=== PATIENT | female | born 1960 | race Caucasian/White ===

== ENCOUNTER 2021-01-05 19:47 | Emergency (ER) | payer MEDICAID ==
[~2021-01-05] VITALS: Ht 142.2 cm; Wt 75.0 kg
--- NOTE | 2021-01-05 20:22 | NUR ---
PT C/O OF PETITE SEIZURES TO DAY. STATING HER LEFT HAND AND LEFT LEG KEEP SHAKING. PT ASSISTED INTO GOWN AND CONNECTED TO MONITORING. SEIZURE PRECAUTIONS IN PLACE. CALL LIGHT IN REACH. ERPA AT BEDSIDE FOR ASSESSMENT.
[2021-01-05] MEDS ORDERED: LORazepam 2 MG/ML, 1ML IVPush ONE (20:30)
[2021-01-05] MEDS ORDERED: LORazepam 1MG TABLET PO ONE (20:30)
[2021-01-05] MEDS ORDERED: LORazepam 1MG TABLET ONE (20:32)
--- NOTE | 2021-01-05 20:35 | NUR ---
MANAGER DIABETES PER MAR.
[2021-01-05 20:46] LABS: BASOPHILS % (AUTO) 1 % (0-1); EOSINOPHILS % (AUTO) 3 % (1-7); LYMPHOCYTES % (AUTO) 21 % (22-44); MEAN CORPUSCULAR HEMOGLOBIN 29.9 pg (27.0-34.8); MEAN CORPUSCULAR HGB CONC 33.9 g/dL (32.4-35.8); MEAN PLATELET VOLUME 6.1 fL (7.4-10.4); MONOCYTES % (AUTO) 7 % (2-9); NEUTROPHILS % (AUTO) 69 % (42-75); PLATELET COUNT 335 x10^3/uL (130-400); RED BLOOD COUNT 5.11 x10^6/uL (3.82-5.3)
[2021-01-05 20:47] LABS: ANION GAP 5 mmol/L (5-15); CHLORIDE 108 mmol/L (98-107); CREATININE 0.82 mg/dL (0.55-1.02)
--- NOTE | 2021-01-05 20:47 | NUR ---
PT STATES SHE IS UNABLE TO PROVIDE URINE AT THIS TIME. ERPA UPDATED, NO NEW ORDERS AT THIS TIME.
[2021-01-05 21:22] LABS: MD SCAN
--- NOTE | 2021-01-05 21:35 | NUR ---
THIS RN HAS WALKED BY PT ROOM FREQUENTLY AND PT HAS BEEN RESTING COMFORTABLY ON GURNEY, NO SHAKING NOTED.
--- NOTE | 2021-01-05 21:40 | NUR ---
TWO RNs ASSISTED PT TO BEDSIDE COMMODE TO PROVIDE URINE SAMPLE. PT SITTING ON COMMODE, SHAKING HER LEFT SHOULDER, ARM, AND LEG, STATING SHE CAN'T STOP THE SHAKING. PT UNABLE TO PROVIDE URINE SAMPLE. TWO RN ASSISTED PT BACK TO BED. ERPA NOTIFIED, OK NOT TO HAVE URINE SAMPLE. PT DOES NOT HELP MUCH WITH TRANSFERRING, PUTTING MINIMAL WEIGHT ON RIGHT LEG AND NONE ON LEFT LEG.
--- NOTE | 2021-01-05 21:43 | NUR ---
ALL RESULTS ARE BACK AT THIS TIME. CHART UP FOR RECHECK.
[2021-01-05 21:56] VITALS: BP 136/105
--- NOTE | 2021-01-05 22:13 | NUR ---
MEDS REQUESTED FROM PHARMACY
[2021-01-05] MEDS ORDERED: LORazepam 2 MG/ML, 1ML ONE (22:20)
--- NOTE | 2021-01-05 22:25 | NUR ---
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 PT LAYING IN BED SHAKING YELLING "GRAND MAL, SEIZURE, SEIZURE". PT CONNECTED TO MONITORING. CALL LIGHT IN REACH.
[2021-01-05] MEDS ORDERED: LORazepam 2 MG/ML, 1ML IM ONE (22:30)
[2021-01-05] MEDS ORDERED: HALOPERIDOL 1 MG TABLET PO ONE (22:30)
--- NOTE | 2021-01-05 22:49 | NUR ---
PT CONTINUES TO SHAKE AND YELL OUT "I'M SEIZING, I'M SEIZING" PT HAS NOT HAD ANY POST ICTAL SX SINCE SHE'S ARRIVED, PT HAS ALWAYS BEEN A&OX4. PT CONTINUES TO BE CONNECTED TO MONITORING, SEIZURE PRECAUTIONS IN PLACE, AND CALL LIGHT IN REACH. BED IN LOWEST POSITION.
--- NOTE | 2021-01-05 23:09 | NUR ---
REPORT GIVEN TO CARLYLE.
--- NOTE | 2021-01-06 00:17 | NUR ---
PT SEEN AND EVALUATED BY , AND PT AWAKE AND ALERT, AND ABLE TO PROVIDE HOME ADDRESS FOR THE TAXI VOUCHER SHE IS REQUESTING. PT HAS BASELINE WEAKNESS TO LEFT SIDE. AND ASSISTED INTO WHEELCHAIR. F/U AND D/C INSTRUCTIONS GIVEN TO PT AND SHE V/U. PT D/C'D WITH TAXI V[employer]CHER AND V/U.
== END 2021-01-06 00:19 | disposition home or self-care (01) ==
LOC: ED 20:43
DX: R56.9 Unspecified convulsions (principal); I10 Essential (primary) hypertension; F17.200 Nicotine dependence, unspecified, uncomplicated; Z86.73 Personal history of transient ischemic attack (TIA), and cerebral infarction without residual deficits
CPT/HCPCS: 36415; 80048; 82040; 85025; 96372; 99283; J2060